=== PATIENT | male | born 1985 | race Caucasian/White ===

== ENCOUNTER 2019-02-22 15:18 | Outpatient (CLI) | payer SELFPAY ==
--- NOTE | 2019-02-22 15:02 | DI.RAD_ITS ---
EXAM: XR KNEE LT 3V AP,LAT,LAUREN INDICATION: left knee pain. COMPARISON: No exams were available for comparison TECHNIQUE: 2D digital imaging was performed. FINDINGS: There is evidence of previous ACL repair. There is mild narrowing of the lateral femoral tibial nichole nt space and periarticular sclerosis and spurring. There is mild spurring from the medial femoral ti bial joint. The patellofemoral joint shows minimal spurring. No joint effusion is seen. IMPRESSION: Status post ACL repair. 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
== END 2019-02-22 15:38 ==
PROVIDERS: Visit Provider Student in an Organized Health Care Education/Training Program
DX: M25.562 Pain in left knee (principal); M17.12 Unilateral primary osteoarthritis, left knee; Z98.890 Other specified postprocedural states
CPT/HCPCS: 73562

== ENCOUNTER 2022-02-10 10:08 | Outpatient (CLI) | payer OTHER, SELFPAY ==
--- NOTE | 2022-02-10 09:45 | DI.RAD_ITS ---
Exam(s) XR SHOULDER LT COMPLETE 2+V EXAM: XR SHOULDER LT COMPLETE 2+V CLINICAL HISTORY: left shpoulder pain. TECHNIQUE: 2D digital imaging was performed of the left shoulder. Three images were obtained. AP, Grashey, Y-view and axillary views were obtained. COMPARISON: No exams were available for comparison FINDINGS: BONES: No acute fracture is present. No bony destructive lesion is seen. A sideplate and screws are s een in the proximal humerus. JOINTS: No dislocation present. SOFT TISSUE: Normal. IMPRESSION: No acute abnormality. DATA REPOSITORY: RADIATION DOSE DELIVERED:
== END 2022-02-10 10:09 | disposition home or self-care (01) ==
LOC: DIORS 10:09
PROVIDERS: PCP Internal Medicine; Referring Provider Internal Medicine; Visit Provider Student in an Organized Health Care Education/Training Program
DX: M25.512 Pain in left shoulder (principal)
CPT/HCPCS: 73030

== ENCOUNTER 2022-02-17 15:33 | Outpatient (REF) | payer OTHER, SELFPAY ==
[2022-02-17 18:39] LABS: ALT 32 U/L (16-63); AST 18 U/L (15-37); Alkaline Phosphatase 84 U/L (46-116); Anion Gap 7.6 mmol/L (3-11); BUN 10 mg/dL (7-18); Bilirubin, Total 0.3 mg/dL (0.2-1.0); CO2 27.4 mmol/L (21.0-32.0); CREATININE 1.2 mg/dL (0.70-1.30); Calcium 8.9 mg/dL (8.5-10.1); Calculated LDL 79 mg/dL (<100); Chloride 102 mmol/L (98-107); Cholesterol 144 mg/dL (<200); Estimated GFR 81.38 (mL/min/1.73m2); Glucose 95 mg/dL (74-106); HDL Cholesterol 52 mg/dL (40-60); Sodium 137 mmol/L (136-145); Total Protein 7.9 g/dL (6.4-8.2); Triglyceride 67 mg/dL (<150)
[2022-02-17 19:04] LABS: Hemoglobin A1C 5.5 % (<5.7)
== END 2022-02-17 15:34 | disposition home or self-care (01) ==
LOC: NCHCN 15:33
PROVIDERS: PCP Internal Medicine; Visit Provider Nurse Practitioner Family
DX: Z13.1 Encounter for screening for diabetes mellitus (principal); Z13.220 Encounter for screening for lipoid disorders; Z00.00 Encounter for general adult medical examination without abnormal findings
CPT/HCPCS: 80053; 80061; 83036

== ENCOUNTER 2022-02-19 03:06 | Outpatient (CLI) | payer OTHER, SELFPAY ==
--- NOTE | 2022-02-19 07:00 | DI.MRI_ITS ---
Exam(s) MR UPPER JOINT LT WO CLINICAL HISTORY: Persistent biceps pain,h/o proximal humerus orif,closed fx,tendinitis,. TECHNIQUE: Multiplanar multisequence MRI was performed. COMPARISON: None FINDINGS: MR examination of the shoulder was performed according to the usual protocol. . There is no significant effusion of the glenohumeral joint. Trace fluid in the subacromial subdeltoi d bursa. Bones and labrum:Note is made of artifact from plate and screw fixation of proximal humerus, there ar e subchondral cysts of the greater tuberosity of the humerus. Glenoid labrum appears intact. Rotator cuff: Supraspinatus, subscapularis, infraspinatus, and teres minor muscles and tendons show normal signal and no evidence of a tear except for slight signal abnormality at the supraspinatus jay tprint which may represent mild tendinosis or intrasubstance partial-thickness tear,. Rotator interval structures are unremarkable with no evidence of a tear. Biceps tendon and anchor: Biceps tendon and anchor show normal signal and no evidence of a tear. Savanna ps tendon is normally positioned in the bicipital groove. IMPRESSION: Minimal focal signal changes in supraspinatus at the humeral attachment, these may represent small fo jesus areas of tendinosis or intrasubstance tear. No other significant findings apart from aforementio [place] fixation apparatus in proximal humerus. DATA REPOSITORY:
== END 2022-02-19 03:26 ==
LOC: DI 03:06
PROVIDERS: PCP Internal Medicine; Visit Provider Student in an Organized Health Care Education/Training Program
DX: M75.22 Bicipital tendinitis, left shoulder (principal)
CPT/HCPCS: 73221

== ENCOUNTER 2022-03-03 14:05 | Outpatient (CLI) | payer OTHER, SELFPAY ==
--- NOTE | 2022-03-03 13:45 | DI.RAD_ITS ---
Exam(s) XR KNEE LT 3V AP,LAT,LAUREN EXAM: XR KNEE LT 3V AP,LAT,LAUREN CLINICAL HISTORY: left knee f/u. TECHNIQUE: 2D digital imaging was performed of the left knee. Three images were obtained. Merchant ,AP and lateral views were obtained. COMPARISON: CR XR KNEE LT 3V AP,LAT,LAUREN from 02/22/2019 FINDINGS: BONES: No acute fracture is present. No bony destructive lesion is seen. Findings of a prior ACL rep air are noted. JOINTS: The knee is normally aligned. No joint effusion is seen. There is joint space narrowing and s purring in the lateral femoral tibial joint. SOFT TISSUE: Normal. IMPRESSION: Degenerative changes of the left knee. DATA REPOSITORY: RADIATION DOSE DELIVERED:
== END 2022-03-03 14:06 | disposition home or self-care (01) ==
LOC: DIORS 14:05
PROVIDERS: PCP Internal Medicine; Referring Provider Internal Medicine; Visit Provider Student in an Organized Health Care Education/Training Program
DX: M22.42 Chondromalacia patellae, left knee (principal); M17.12 Unilateral primary osteoarthritis, left knee
CPT/HCPCS: 73562

== ENCOUNTER 2023-10-25 18:36 | Outpatient (REF) | payer MEDICAID, SELFPAY ==
[2023-10-25 20:19] LABS: ALT 32 U/L (16-63); AST 18 U/L (15-37); Albumin 4.2 g/dL (3.4-5.0); Alkaline Phosphatase 98 U/L (46-116); Anion Gap 11.6 mmol/L (3-11); BUN 6 mg/dL (7-18); Bilirubin, Total 0.55 mg/dL (0.2-1.0); CO2 24.4 mmol/L (21.0-32.0); Calcium 9.9 mg/dL (8.5-10.1); Chloride 103 mmol/L (98-107); Estimated GFR 100.03 (mL/min/1.73m2); Glucose 100 mg/dL (74-106); Potassium 4.3 mmol/L (3.5-5.1); Sodium 139 mmol/L (136-145); Total Protein 8.5 g/dL (6.4-8.2)
== END 2023-10-25 18:37 | disposition home or self-care (01) ==
LOC: NCHCN 18:36
PROVIDERS: PCP Internal Medicine; Visit Provider Nurse Practitioner Family
DX: R10.9 Unspecified abdominal pain (principal)
CPT/HCPCS: 80053

== ENCOUNTER 2024-02-29 01:32 | Outpatient (CLI) | payer MEDICAID, SELFPAY ==
--- NOTE | 2024-02-29 06:30 | DI.CT_ITS ---
Exam(s) CT SINUS WO EXAM: CT SINUS WO CLINICAL HISTORY: chronic nasal congestion,r09.81. TECHNIQUE: Imaging Protocol: Axial computed tomography images with coronal and sagittal reformatted images were created and reviewed. No IV Contrast COMPARISON: No exams were available for comparison FINDINGS: MAXILLARY SINUSES: There is mucosal thickening in the floor both maxillary sinuses, not associated with fluid levels. T here is, however, significant periapical lucency around posterior tooth at this level on the right si de. OSTIOMEATAL UNITS: Patent bilaterally ETHMOIDAL AIR CELLS: Well aerated. No mucosal thickening nor fluid levels. SPHENOID SINUSES: Well aerated. No mucosal thickening nor fluid levels. FRONTAL SINUSES: Well aerated. No mucosal thickening nor fluid levels. NASAL SEPTUM AND TURBINATES:Nasal septum is midline with no evidence of significant nasal septal spur . No evidence of significant za bullosa of the turbinates. MASTOID AIR CELLS: Will aerated. No effusions. IMPRESSION: 1. There is relatively symmetrical mucosal thickening in the floor both maxillary sinuses, not assoc iated with fluid levels within the maxillary sinuses but associated with periapical lucency around th e most posterior right tooth. 2. Other paranasal sinuses are clear. RADIATION DOSE DELIVERED: 112.7mGy.cm Total DLP DATA REPOSITORY: All CT scans at this facility are submitted to the National Radiology Data Registry (NRDR) Dose Index Registry (DIR) with the [employer] ([employer]). RADIATION OPTIMIZATION: All CT scans at this facility use at least one of these dose optimization te chniques: automated exposure control; mA and/or kV adjustment per patient size (includes targeted exa ms where dose is matched to clinical indication); or iterative reconstruction.
== END 2024-02-29 01:52 ==
LOC: DI 01:32
PROVIDERS: PCP Nurse Practitioner Family; Visit Provider Registered Nurse Maternal Newborn
DX: R09.81 Nasal congestion (principal)
CPT/HCPCS: 70486